=== PATIENT | male | born 1945 ===

== ENCOUNTER 2018-04-09 16:04 | Observation (INO) | payer MEDICARE ==
[2018-04-09 16:05] VITALS: BMI 28.8
[2018-04-09 17:02] LABS: BASO # 0.1 K/uL (0.0-0.2); BASO % 0.4 % (0.0-2.0); EOS # 0.2 K/uL (0.0-0.7); EOS % 1.7 % (0.0-4.0); HEMOGLOBIN 11.6 g/dL (12.0-18.0); LYMPH # 0.9 K/uL (1.0-4.3); LYMPH % 7.4 % (20.0-40.0); MEAN CELL VOLUME 84.2 fL (80.0-94.0); MEAN CORPUSCULAR HEMOGLOBIN 28.9 pg (27.0-31.0); MEAN CORPUSCULAR HGB CONC 34.3 g/dL (33.0-37.0); MEAN PLATELET VOLUME 10.6 fL (7.2-11.7); MONO # 1.3 K/uL (0.0-0.8); NEUT # 9.5 K/uL (1.8-7.0); NEUT % 79.5 % (50.0-75.0); PLATELET COUNT 175 K/uL (130-400); RED CELL DISTRIBUTION WIDTH 14.2 % (11.5-14.5); WHITE BLOOD COUNT 11.9 K/uL (4.8-10.8)
[2018-04-09 17:10] LABS: INR 1.2; PROTHROMBIN TIME 13.4 SECONDS (9.7-12.2)
[2018-04-09 17:15] LABS: ALB/GLOB RATIO 1.2 (1.0-2.1); ALBUMIN 4.3 g/dL (3.5-5.0); ALT/SGPT 23 U/L (21-72); AST/SGOT 31 U/L (17-59); BLOOD UREA NITROGEN 22 mg/dL (9-20); CALCIUM 8.3 mg/dl (8.6-10.4); GFR AFRICAN-AMERICAN 60; GFR NON-AFRICAN AMERICAN 49
[2018-04-09 17:27] LABS: B-TYPE NATRIURETIC PEPTIDE 229 pg/mL (0-900); CK-MB 0.78 ng/mL (0.0-3.38)
[2018-04-09 17:56] LABS: EOSINOPHIL 1 % (0-4); LYMPHOCYTE 5 % (20-40); MONOCYTE 8 % (0-10); NEUTROPHIL 86 % (50-75); PLATELET ESTIMATE NORMAL (NORMAL); TOTAL CELLS COUNTED 100
[2018-04-09 18:01] LABS: SQUAMOUS EPITHIAL < 1 /hpf (0-5); URINE BILIRUBIN NEGATIVE (NEGATIVE); URINE BLOOD NEGATIVE (NEGATIVE); URINE CLARITY Clear (Clear); URINE COLOR Yellow (YELLOW); URINE GLUCOSE (UA) NORMAL (Normal); URINE LEUKOCYTE ESTERASE NEG Leu/uL (Negative); URINE PROTEIN NEGATIVE (NEGATIVE); URINE UROBILINOGEN NORMAL mg/dL (0.2-1.0)
[2018-04-09] MEDS ORDERED: Iodixanol 320 MG/ML 100 ML BOTTLE IV ONE (18:01)
--- NOTE | 2018-04-09 18:02 | RAD ---
PROCEDURE: CHEST RADIOGRAPH, 1 VIEW HISTORY: CP COMPARISON: 09/18/2016 FINDINGS: LUNGS: Clear. PLEURA: No pneumothorax or pleural fluid seen. CARDIOVASCULAR: Normal. OSSEOUS STRUCTURES: No significant abnormalities. VISUALIZED UPPER ABDOMEN: Normal. OTHER FINDINGS: None. IMPRESSION: No active disease.
--- NOTE | 2018-04-09 18:25 | C.PDOC ---
History Of Present Illness 73 year old male, whose PMHx includes Right leg DVT (diagnosed two years ago, compliant with Pradaxa), PE, HTN, and CVA, presents to the ED for evaluation of cough that is productive of white sputum and pleuritic chest pain for several days. Patient also complains of mild shortness of breath. He denies fever, chills, abdominal pain, nausea/vomiting, diarrhea, dysuria, palpitatins. History obtained from patient and his , who is at bedside. PMD Dr. Edgard Baptiste Time Seen by Provider: 04/09/18 16:21 Chief Complaint (Nursing): Chest Pain History Per: Patient, Family () History/Exam Limitations: no limitations Onset/Duration Of Symptoms: Days Current Symptoms Are (Timing): Still Present Severity: Moderate Quality: "Pain" Additional History Per: Patient Past Medical History Reviewed: Historical Data, Nursing Documentation, Vital Signs Vital Signs: Last Vital Signs Temp 99 F 04/09/18 16:10 Pulse 75 04/09/18 16:49 Resp 20 04/09/18 16:10 BP 126/74 04/09/18 16:10 Pulse Ox 96 04/09/18 18:33 - Medical History PMH: CVA, Deep Vein Thrombosis, HTN, Hypercholesterolemia, Pulmonary Embolism Surgical History: No Surg Hx - [facility] ENDOSC POLYPECTOMY OF LG INTEST (12/25/13) PLICATION OF VENA CAVA (03/20/15) Family History: States: No Known Family Hx - Social History Hx Tobacco Use: No Hx Alcohol Use: No Hx Substance Use: No - Immunization History Hx Tetanus Toxoid Vaccination: No Hx Influenza Vaccination: No Hx Pneumococcal Vaccination: Yes Review Of Systems Constitutional: Negative for: Fever, Chills Cardiovascular: Positive for: Chest Pain (pleuritic ). Negative for: Palpitations Respiratory: Positive for: Cough, Shortness of Breath, Sputum (white) Gastrointestinal: Negative for: Nausea, Vomiting, Abdominal Pain Skin: Negative for: Rash Neurological: Negative for: Weakness, Numbness Physical Exam - Physical Exam Appears: Well, Non-toxic, Other (mildly uncomfortable ) Skin: Normal Color, Warm, Dry, No Rash Head: Normacephalic Eye(s): bilateral: Normal Inspection Oral Mucosa: Moist Neck: Supple Chest: Symmetrical, No Deformity, No Tenderness Cardiovascular: Rhythm Regular Respiratory: No Accessory Muscle Use, Rales (mild, at bases ), No Rhonchi, No Wheezing, Other (speaking in full sentences) Gastrointestinal/Abdominal: Normal Exam, Bowel Sounds, Soft, No Tenderness, No Guarding, No Rebound Extremity: Normal ROM, Calf Tenderness (right), Capillary Refill (< 2 seconds ) , Other (2+ pitting edema to bilateral lower extremities, right>left ) Pulses: Left Dorsalis Pedis: Normal, Right Dorsalis Pedis: Normal Neurological/Psych: Oriented x3 ED Course And Treatment - Laboratory Results Result Diagrams: 04/09/18 16:54 04/09/18 16:54 ECG: Interpreted By Me, Viewed By Me ECG Rhythm: Sinus Rhythm ECG Interpretation: Abnormal Interpretation Of ECG: Sinus Rhythm at rate 75bpm with PACs, 1st degree AV block , left axis deviation, no acute ST/T wave changes. Rate From EC O2 Sat by Pulse Oximetry: 96 - Other Rad CXR X-Ray: Viewed By Me, Read By Radiologist Interpretation: Accession No. : [id number]. Patient Name / ID : WILLIS CABRERA / [id number]. Exam Date : 04/09/2018 17:17:38 ( Approved ). Study Comment : Sex / Age : M / [id number]. Creator : Lina Atkins. Dictator : José Miguel Tena MD. Small Machine Bindery Operator : Trouble Dispatcher : José Miguel Tena MD. Approver2 : Report Date : 04/09/2018 17:21:49. My Comment : . PROCEDURE: CHEST RADIOGRAPH, 1 VIEW. HISTORY: CP. COMPARISON: 09/18/2016. FINDINGS: LUNGS: Clear. PLEURA: No pneumothorax or pleural fluid seen. CARDIOVASCULAR : Normal. OSSEOUS STRUCTURES: No significant abnormalities. VISUALIZED UPPER ABDOMEN: Normal. OTHER FINDINGS: None. IMPRESSION: No active disease. Progress Note: Bloodwork, UA, CXR, CT Angio Chest, and EKG ordered and reviewed. Disposition - Disposition Disposition Time: 19:00 Condition: STABLE Forms: [facility] (Turkmen) - Clinical Impression Clinical Impression: Chest pain, Cough, SOB (shortness of breath) - Scribe Statement The provider has reviewed the documentation as recorded by the Scribe (Luz Baptiste) Provider Attestation: All medical record entries made by the Scribe were at my direction and personally dictated by me. I have reviewed the chart and agree that the record accurately reflects my personal performance of the history, physical exam, medical decision making, and the department course for this patient. I have also personally directed, reviewed, and agree with the discharge instructions and disposition. Physician Patient Turnover Patient Signed Over To: Enrike Redd Handoff Comments: pending cta chest, reassessment
--- NOTE | 2018-04-09 18:44 | CT ---
PROCEDURE: CT Chest with contrast (Pulmonary Angiogram) HISTORY: cp, sob, r/o pe COMPARISON: None available. TECHNIQUE: Axial computed tomography images were obtained of the chest in the pulmonary arterial phase of enhancement. Coronal and sagittal reformatted images were created and reviewed. Intravenous contrast dose: Visipaque 320, 100 cc Radiation dose: Total exam DLP = 511.86 mGy-cm. This CT exam was performed using one or more of the following dose reduction techniques: Automated exposure control, adjustment of the mA and/or kV according to patient size, and/or use of iterative reconstruction technique. FINDINGS: PULMONARY ARTERIES: Unremarkable. No pulmonary embolism. AORTA: No acute findings. No thoracic aortic aneurysm. LUNGS: Trace dependent atelectasis seen at the right lower lobe and borderline of left lower lobe near the posterior costophrenic sulcus. Linear atelectasis or fibrosis seen at both bases as well. The central airways are clear. . No nodule, mass or pulmonary consolidation. PLEURAL SPACES: Unremarkable. No effusion or pneuomothorax. HEART: [id number] coronary artery atherosclerosis noted. No cardiomegaly. No significant pericardial effusion. LYMPH NODES: No lymphadenopathy. BONES, CHEST WALL: Unremarkable. No fracture or destructive lesion OTHER FINDINGS: IVC filter again noted at the inferior vena cava in the abdomen. IMPRESSION: Unremarkable CT pulmonary angiogram. No pulmonary embolus. IVC filter in situ in the abdomen.
[2018-04-09] MEDS ORDERED: Albuterol-Ipratrop 3 mg / 0.5 (3 ml) UD INH PRN (22:27)
--- NOTE | 2018-04-09 22:36 | CP.PCM.HP ---
<Nolan Brunner - Last Filed: 04/10/18 04:38> History of Present Illness - History of Present Illness History of Present Illness: This is a 73 yo male with past medical hx of HTN, CVA, DVT, s/p IVC filter, presenting with chief complaint of chest pain and shortness of breath x 2 days. Pt reports the pain started suddenly when he was sitting in his recliner 2 days ago. Describes the pain as "mild", had trouble further characterizing it. It comes and goes. He says when it comes, it will occur for 5 mins at a time. Pain is diffusely located over whole chest, 5/10. It is worse with inspiration and it is reproducible. It does not radiate. Pt also reports cough with nonbloody sputum production for the past 3 months. The chest pain has not happened before. No sick contacts. Last travel was to [place] in Dec 2017. Denies fevers , chills, nausea, vomiting. PMD: Manuel Baptiste- last visit 2 weeks ago Specialists: Dr. Estrella- cardiology PMH: HTN, B/L DVT with IVC filter placement, stroke in November 2014 with some residual deficit on right side PSH: IVC filter, placed by Dr. Clemente, clot removal by Dr. Rodriguez November 2017 Allergies: NKDA FH: DM, emphysema in family Home meds: losartan-HCTZ 12. mg po daily, coreg 10 mg PO daily, lasix 20 mg po BID, asa 81 mg po daily, pradaxa (waiting to confirm dose), symbicort inhaler bid Social hx: Uses cane to walk. Needs with help with ADLs with help of . Retired [employer]. Born in [place]. Denies smoking hx. Denies drinking. Denies drug use. Code status: full code Insurance: [facility] medicare Present on Admission - Present on Admission Any Indicators Present on Admission: Yes History of DVT/PE: Yes History of Uncontrolled Diabetes: No Urinary Catheter: No Decubitus Ulcer Present: No Review of Systems - Constitutional Constitutional: absent: Chills, Fever - EENT Eyes: absent: Blurred Vision, Change in Vision Nose/Mouth/Throat: absent: Neck Pain - Cardiovascular Cardiovascular: Chest Pain, Dyspnea - Respiratory Respiratory: Cough, Dyspnea, Chest Congestion. absent: Hemoptysis - Gastrointestinal Gastrointestinal: absent: Abdominal Pain, Vomiting - Genitourinary Genitourinary: absent: Change in Urinary Stream, Difficulty Urinating - Musculoskeletal Musculoskeletal: Myalgias. absent: Back Pain - Integumentary Integumentary: absent: Bleeding Lesions, Changing Lesions - Neurological Neurological: Focal Weakness, Weakness - Psychiatric Psychiatric: absent: Auditory Hallucinations, Visual Hallucinations - Hematologic/Lymphatic Hematologic: absent: Easy Bleeding, Easy Bruising Past Patient History - Infectious Disease Hx of Infectious Diseases: None - Tetanus Immunizations Tetanus Immunization: Unknown - Past Medical History & Family History Past Medical History?: Yes - Past Social History Smoking Status: Never Smoked Chewing Tobacco Use: No Cigar Use: No Alcohol: None Drugs: Denies Home Situation {Lives}: With Family Domestic Violence: Negative - CARDIAC Hx Hypercholesterolemia: Yes Hx Hypertension: Yes - PULMONARY Hx Pulmonary Embolism: Yes - HEMATOLOGICAL/ONCOLOGICAL Hx Blood Disorders: No - MUSCULOSKELETAL/RHEUMATOLOGICAL Hx Falls: No - GASTROINTESTINAL Hx Gastrointestinal Disorders: Yes Other/Comment: Diverticulosis - PSYCHIATRIC Hx Substance Use: No - SURGICAL HISTORY Hx Surgeries: Yes Other/Comment: Colonscopy (2013) - ANESTHESIA Hx Anesthesia: No Hx Anesthesia Reactions: No Meds Allergies/Adverse Reactions: Allergies Allergy/AdvReac Type Severity Reaction Status Date / Time No Known Allergies Allergy Verified 04/09/18 16:11 Physical Exam - Constitutional Appears: Non-toxic, No Acute Distress - Head Exam Head Exam: ATRAUMATIC, NORMAL INSPECTION, NORMOCEPHALIC - Eye Exam Eye Exam: EOMI - ENT Exam ENT Exam: Mucous Membranes Moist - Neck Exam Neck exam: Positive for: Full Rom, Normal Inspection - Respiratory Exam Respiratory Exam: Rales. absent: Respiratory Distress Additional comments: some minimal rales bases - Cardiovascular Exam Cardiovascular Exam: REGULAR RHYTHM, +S1, +S2 Additional comments: chest pain reproducible to palpation - GI/Abdominal Exam GI & Abdominal Exam: Normal Bowel Sounds, Soft. absent: Tenderness - Extremities Exam Extremities exam: Positive for: pedal edema, pedal pulses present. Negative for : normal inspection Additional comments: right medial leg tender to palpation - Neurological Exam Neurological exam: Alert, CN II-XII Intact, Oriented x3 - Psychiatric Exam Psychiatric exam: Normal Affect, Normal Mood - Skin Skin Exam: Dry, Intact, Normal Color, Warm Results - Vital Signs Recent Vital Signs: Last Vital Signs Temp 98.1 F 04/09/18 22:11 Pulse 82 04/09/18 22:11 Resp 20 04/09/18 22:11 BP 135/77 04/09/18 22:11 Pulse Ox 95 04/09/18 22:11 - Labs Result Diagrams: 04/09/18 16:54 04/09/18 16:54 Labs: Laboratory Results - last 24 hr 04/09/18 04/09/18 04/09/18 16:54 16:54 16:54 WBC 11.9 H D RBC 4.00 L Hgb 11.6 L Hct 33.7 L MCV 84.2 MCH 28.9 MCHC 34.3 RDW 14.2 Plt Count 175 MPV 10.6 Neut % (Auto) 79.5 H Lymph % (Auto) 7.4 L [place] % (Auto) 11.0 H Eos % (Auto) 1.7 Baso % (Auto) 0.4 Neut # (Auto) 9.5 H Lymph # (Auto) 0.9 L [place] # (Auto) 1.3 H Eos # (Auto) 0.2 Baso # (Auto) 0.1 Neutrophils % (Manual) 86 H Lymphocytes % (Manual) 5 L Monocytes % (Manual) 8 Eosinophils % (Manual) 1 Platelet Estimate Normal RBC Morphology Normal PT 13.4 H INR 1.2 APTT 43 H Sodium 139 Potassium 4.2 Chloride 102 Carbon Dioxide 28 Anion Gap 14 BUN 22 H Creatinine 1.4 Est GFR ( Amer) 60 Est GFR (Non-Af Amer) 49 Random Glucose 89 Calcium 8.3 L Total Bilirubin 0.7 AST 31 ALT 23 Alkaline Phosphatase 59 Total Creatine Kinase 66 CK-MB (Mass) 0.78 Troponin I < 0.0120 NT-Pro-B Natriuret Pep 229 Total Protein 8.1 Albumin 4.3 Globulin 3.8 Albumin/Globulin Ratio 1.2 Urine Color Urine Clarity Urine pH Ur Specific [place] Urine Protein Urine Glucose (UA) Urine Ketones Urine Blood Urine Nitrate Urine Bilirubin Urine Urobilinogen Ur Leukocyte Esterase Urine WBC (Auto) Urine RBC (Auto) Ur Squamous Epith Cells 04/09/18 17:56 WBC RBC Hgb Hct MCV MCH MCHC RDW Plt Count MPV Neut % (Auto) Lymph % (Auto) [place] % (Auto) Eos % (Auto) Baso % (Auto) Neut # (Auto) Lymph # (Auto) [place] # (Auto) Eos # (Auto) Baso # (Auto) Neutrophils % (Manual) Lymphocytes % (Manual) Monocytes % (Manual) Eosinophils % (Manual) Platelet Estimate RBC Morphology PT INR APTT Sodium Potassium Chloride Carbon Dioxide Anion Gap BUN Creatinine Est GFR ( Amer) Est GFR (Non-Af Amer) Random Glucose Calcium Total Bilirubin AST ALT Alkaline Phosphatase Total Creatine Kinase CK-MB (Mass) Troponin I NT-Pro-B Natriuret Pep Total Protein Albumin Globulin Albumin/Globulin Ratio Urine Color Yellow Urine Clarity Clear Urine pH 5.0 Ur Specific [place] 1.013 Urine Protein Negative Urine Glucose (UA) Normal Urine Ketones Negative Urine Blood Negative Urine Nitrate Negative Urine Bilirubin Negative Urine Urobilinogen Normal Ur Leukocyte Esterase Neg Urine WBC (Auto) < 1 Urine RBC (Auto) < 1 Ur Squamous Epith Cells < 1 Assessment & Plan - Assessment and Plan (Free Text) Assessment: This is a 73 yo male with past medica hx of HTN, DVT s/p IVC filter, CVA, reporting chief complaint of chest pain and shortness of breath 1. Chest pain -serial troponins -1st two sets of troponins negative -serial EKGs -initial ekg shows sinus rhythm with PACs, 1st degree AV block -HGB a1C -lipid panel -TSH and free t4 -BNP within normal limits -start asa 81 mg po daily -start crestor 10 mg po hs -urine drug screen -heart healthy diet -restart pradaxa 75 mg po bid -cardiology consult. Dr. Lentz. recs appreciated. -tylenol 650 mg po q 6 hrs prn pain -Oxygen by nasal cannula as needed -duonebs RQ6 prn -echo pending, no previous echo on file. -JUDITH risk score of at least 4 -chest CT angio showed no evidence of pulmonary embolism, but does not mild to moderate coronary atherosclerosis -continue coreg 6.25 mg po bid. 2. Coronary artery disease -noted on chest ct -continue asa 81 mg po daily -continue crestor 10 mg po hs 2. Leukocytosis -blood cultures x 2 -urine cultures x 2 -sputum cultures x 2 -procalcitonin -lactic acid 3. Pain right leg -will order venous dopplers lower extremities bilaterally 4. Anemia -normocytic -will check stool for occult blood -iron studies -LDH, haptoglobin -retic count 4. hx of DVT -restart pradaxa 75 mg po bid 5. hx of CVA -will order PT/OT -asa 81 mg PO daily 6. elevated PT and PTT -likely due to use of pradaxa -continue to monitor 6. GI/DVT ppx -protonix 40 mg iv daily -pradaxa 75 mg po bid Heart healthy diet Code status: full code discussed with Dr. Hopkins <Braden Hopkins - Last Filed: 04/10/18 19:09> Results - Vital Signs Recent Vital Signs: Last Vital Signs Temp 97.9 F 04/10/18 15:00 Pulse 71 04/10/18 15:00 Resp 20 04/10/18 15:00 BP 123/78 04/10/18 15:00 Pulse Ox 94 L 04/10/18 15:00 - Labs Result Diagrams: 04/10/18 06:21 04/10/18 06:21 Labs: Laboratory Results - last 24 hr 04/09/18 04/10/18 04/10/18 22:55 01:40 03:49 WBC RBC Hgb Hct MCV MCH MCHC RDW Plt Count MPV Neut % (Auto) Lymph % (Auto) [place] % (Auto) Eos % (Auto) Baso % (Auto) Neut # (Auto) Lymph # (Auto) [place] # (Auto) Eos # (Auto) Baso # (Auto) Neutrophils % (Manual) Lymphocytes % (Manual) Monocytes % (Manual) Eosinophils % (Manual) Platelet Estimate RBC Morphology Retic Count Haptoglobin Sodium Potassium Chloride Carbon Dioxide Anion Gap BUN Creatinine Est GFR ( Amer) Est GFR (Non-Af Amer) Random Glucose Hemoglobin A1c Lactic Acid Calcium Iron TIBC % Saturation Ferritin 52.1 Total Bilirubin AST ALT Alkaline Phosphatase Lactate Dehydrogenase 425 Total Creatine Kinase 71 CK-MB (Mass) 0.54 Troponin I < 0.0120 NT-Pro-B Natriuret Pep 225 Total Protein Albumin Globulin Albumin/Globulin Ratio Triglycerides 61 D Cholesterol 166 LDL Cholesterol Direct 100 HDL Cholesterol 35 Procalcitonin Free T4 TSH 3rd Generation 1.83 Urine Opiates Screen Negative Urine Methadone Screen Negative Ur Barbiturates Screen Negative Ur Phencyclidine Scrn Negative Ur Amphetamines Screen Negative U Benzodiazepines Scrn Negative U Oth Cocaine Metabols Negative U Cannabinoids Screen Negative 04/10/18 04/10/18 04/10/18 06:21 06:21 06:21 WBC 9.8 RBC 3.80 L Hgb 11.0 L Hct 31.8 L MCV 83.6 MCH 29.1 MCHC 34.7 RDW 14.7 H Plt Count 164 MPV 10.7 Neut % (Auto) 75.9 H Lymph % (Auto) 9.5 L [place] % (Auto) 12.2 H Eos % (Auto) 2.0 Baso % (Auto) 0.4 Neut # (Auto) 7.4 H Lymph # (Auto) 0.9 L [place] # (Auto) 1.2 H Eos # (Auto) 0.2 Baso # (Auto) 0.0 Neutrophils % (Manual) 78 H Lymphocytes % (Manual) 7 L Monocytes % (Manual) 11 H Eosinophils % (Manual) 4 Platelet Estimate Normal RBC Morphology Normal Retic Count 1.0 Haptoglobin Sodium 139 Potassium 3.5 L Chloride 101 Carbon Dioxide 27 Anion Gap 15 BUN 20 Creatinine 1.3 Est GFR ( Amer) > 60 Est GFR (Non-Af Amer) 54 Random Glucose 103 Hemoglobin A1c Lactic Acid Calcium 8.1 L Iron TIBC % Saturation Ferritin Total Bilirubin 0.7 AST 24 ALT 18 L D Alkaline Phosphatase 61 Lactate Dehydrogenase Total Creatine Kinase CK-MB (Mass) Troponin I NT-Pro-B Natriuret Pep Total Protein 7.5 Albumin 3.9 Globulin 3.6 Albumin/Globulin Ratio 1.1 Triglycerides Cholesterol LDL Cholesterol Direct HDL Cholesterol Procalcitonin Free T4 TSH 3rd Generation Urine Opiates Screen Urine Methadone Screen Ur Barbiturates Screen Ur Phencyclidine Scrn Ur Amphetamines Screen U Benzodiazepines Scrn U Oth Cocaine Metabols U Cannabinoids Screen 04/10/18 04/10/18 04/10/18 06:21 06:21 06:21 WBC RBC Hgb Hct MCV MCH MCHC RDW Plt Count MPV Neut % (Auto) Lymph % (Auto) [place] % (Auto) Eos % (Auto) Baso % (Auto) Neut # (Auto) Lymph # (Auto) [place] # (Auto) Eos # (Auto) Baso # (Auto) Neutrophils % (Manual) Lymphocytes % (Manual) Monocytes % (Manual) Eosinophils % (Manual) Platelet Estimate RBC Morphology Retic Count Haptoglobin 271.3 H Sodium Potassium Chloride Carbon Dioxide Anion Gap BUN Creatinine Est GFR ( Amer) Est GFR (Non-Af Amer) Random Glucose Hemoglobin A1c Lactic Acid Calcium Iron 22 L TIBC 312 % Saturation 7 L Ferritin Total Bilirubin AST ALT Alkaline Phosphatase Lactate Dehydrogenase Total Creatine Kinase CK-MB (Mass) Troponin I NT-Pro-B Natriuret Pep Total Protein Albumin Globulin Albumin/Globulin Ratio Triglycerides Cholesterol LDL Cholesterol Direct HDL Cholesterol Procalcitonin 0.07 L Free T4 1.55 TSH 3rd Generation Urine Opiates Screen Urine Methadone Screen Ur Barbiturates Screen Ur Phencyclidine Scrn Ur Amphetamines Screen U Benzodiazepines Scrn U Oth Cocaine Metabols U Cannabinoids Screen 04/10/18 04/10/18 04/10/18 06:21 06:21 06:21 WBC RBC Hgb Hct MCV MCH MCHC RDW Plt Count MPV Neut % (Auto) Lymph % (Auto) [place] % (Auto) Eos % (Auto) Baso % (Auto) Neut # (Auto) Lymph # (Auto) [place] # (Auto) Eos # (Auto) Baso # (Auto) Neutrophils % (Manual) Lymphocytes % (Manual) Monocytes % (Manual) Eosinophils % (Manual) Platelet Estimate RBC Morphology Retic Count Haptoglobin Sodium Potassium Chloride Carbon Dioxide Anion Gap BUN Creatinine Est GFR ( Amer) Est GFR (Non-Af Amer) Random Glucose Hemoglobin A1c 6.0 Lactic Acid 0.7 Calcium Iron TIBC % Saturation Ferritin Total Bilirubin AST ALT Alkaline Phosphatase Lactate Dehydrogenase Total Creatine Kinase 56 CK-MB (Mass) 0.56 Troponin I < 0.0120 NT-Pro-B Natriuret Pep Total Protein Albumin Globulin Albumin/Globulin Ratio Triglycerides Cholesterol LDL Cholesterol Direct HDL Cholesterol Procalcitonin Free T4 TSH 3rd Generation Urine Opiates Screen Urine Methadone Screen Ur Barbiturates Screen Ur Phencyclidine Scrn Ur Amphetamines Screen U Benzodiazepines Scrn U Oth Cocaine Metabols U Cannabinoids Screen Assessment & Plan - Date & Time Date: 04/10/18 (I have seen and examined the patient. I agree with the findings and plan of care as documented by Dr. Brunner. Patient with chest pain. History of PE/DVT with IVC filter. Continue Pradaxa. CT angio negative for PE. Check lower extremity doppler. ROMIx3 with EKG. Aspirin and Statin. Monitor for acute changes.) Time: 19:08 Attending/Attestation - Attestation I have personally seen and examined this patient.: Yes I have fully participated in the care of the patient.: Yes I have reviewed all pertinent clinical information: Yes
[2018-04-09 23:21] LABS: CK-MB 0.54 ng/mL (0.0-3.38)
[2018-04-10 02:33] LABS: FERRITIN 52.1 ng/mL
[2018-04-10 04:12] LABS: BARBITURATES, UR NEGATIVE (NEGATIVE); BENZODIAZEPINES, UR NEGATIVE (NEGATIVE); OPIATES, UR NEGATIVE (NEGATIVE); PHENCYCLIDINE, UR NEGATIVE (NEGATIVE)
[2018-04-10 06:29] LABS: BASO % 0.4 % (0.0-2.0); EOS # 0.2 K/uL (0.0-0.7); LYMPH # 0.9 K/uL (1.0-4.3); LYMPH % 9.5 % (20.0-40.0); MEAN CELL VOLUME 83.6 fL (80.0-94.0); MEAN CORPUSCULAR HEMOGLOBIN 29.1 pg (27.0-31.0); MEAN CORPUSCULAR HGB CONC 34.7 g/dL (33.0-37.0); MEAN PLATELET VOLUME 10.7 fL (7.2-11.7); MONO # 1.2 K/uL (0.0-0.8); MONO % 12.2 % (0.0-10.0); NEUT # 7.4 K/uL (1.8-7.0); NEUT % 75.9 % (50.0-75.0); PLATELET COUNT 164 K/uL (130-400); RED CELL DISTRIBUTION WIDTH 14.7 % (11.5-14.5); WHITE BLOOD COUNT 9.8 K/uL (4.8-10.8)
[2018-04-10 07:36] LABS: ALB/GLOB RATIO 1.1 (1.0-2.1); ALBUMIN 3.9 g/dL (3.5-5.0); ALT/SGPT 18 U/L (21-72); AST/SGOT 24 U/L (17-59); BLOOD UREA NITROGEN 20 mg/dL (9-20); CALCIUM 8.1 mg/dl (8.6-10.4); GFR AFRICAN-AMERICAN > 60; GFR NON-AFRICAN AMERICAN 54
[2018-04-10 07:40] LABS: CK-MB 0.56 ng/mL (0.0-3.38)
[2018-04-10 07:54] LABS: IRON 22 ug/dL (49-181)
[2018-04-10 08:05] LABS: % IRON SATURATION 7 (20-55); FREE T4 1.55 ng/dL (0.78-2.19); TOTAL IRON BINDING CAPACITY 312 ug/dL (250-450)
[2018-04-10 08:27] VITALS: RESP 20
[2018-04-10 09:45] LABS: EOSINOPHIL 4 % (0-4); LYMPHOCYTE 7 % (20-40); MONOCYTE 11 % (0-10); NEUTROPHIL 78 % (50-75); PLATELET ESTIMATE NORMAL (NORMAL); TOTAL CELLS COUNTED 100
[2018-04-10] MEDS ORDERED: Potassium Chloride 20 mEq ER Tab PO ONE (10:00)
--- NOTE | 2018-04-10 11:26 | CP.PCM.PN ---
<Oxana Stevens - Last Filed: 04/10/18 14:22> Subjective - Date & Time of Evaluation Date of Evaluation: 04/10/18 Time of Evaluation: 09:00 - Subjective Subjective: Medicine Note for Hospitalist Service- Dr. Feldman Patient was seen and examined at bedside. Patient reports a nonproductive cough that causes chest pain. Admits to right lower extremity pain. He has not had a bowel movement in 3 days, admits to passing flatus. Denied fever, chills, headaches, shortness of breath, n/v/d, or urinary symptoms. Objective - Vital Signs/Intake and Output Vital Signs (last 24 hours): Temp Pulse Resp BP Pulse Ox 97.8 F 87 20 134/81 94 L 04/10/18 08:26 04/10/18 09:13 04/10/18 08:26 04/10/18 09:13 04/10/18 08:26 Intake and Output: 04/10/18 04/10/18 06:59 18:59 Output Total 550 Balance -550 - Medications Medications: Current Medications Acetaminophen (Tylenol 325mg Tab) 650 mg PO Q6 PRN PRN Reason: Pain, moderate (4-7) Albuterol/Ipratropium (Duoneb 3 Mg/0.5 Mg (3 Ml) Ud) 3 ml INH RQ6 PRN PRN Reason: Shortness of Breath Aspirin (Aspirin Chewable) 81 mg PO DAILY [facility] Last Admin: 04/10/18 09:12 Dose: 81 mg Carvedilol (Coreg) 6.25 mg PO BID [facility] Last Admin: 04/10/18 09:12 Dose: 6.25 mg Dabigatran (Pradaxa) 75 mg PO BID [facility] Last Admin: 04/10/18 09:12 Dose: 75 mg Hydrochlorothiazide (Microzide) 12.5 mg PO DAILY [facility] Last Admin: 04/10/18 09:12 Dose: 12.5 mg Losartan Potassium (Cozaar) 50 mg PO DAILY [facility] Last Admin: 04/10/18 09:12 Dose: 50 mg Pantoprazole Sodium (Protonix Inj) 40 mg IVP DAILY [facility] Last Admin: 04/10/18 09:11 Dose: 40 mg Rosuvastatin Calcium (Crestor) 10 mg PO HS [facility] - Labs Labs: 04/10/18 06:21 04/10/18 06:21 PT 13.4 SECONDS (9.7-12.2) H 04/09/18 16:54 INR 1.2 04/09/18 16:54 APTT 43 SECONDS (21-34) H 04/09/18 16:54 - Additional Findings Additional findings: - Constitutional Appears: Non-toxic, No Acute Distress - Head Exam Head Exam: ATRAUMATIC, NORMAL INSPECTION, NORMOCEPHALIC - Eye Exam Eye Exam: EOMI - ENT Exam ENT Exam: Mucous Membranes Moist - Neck Exam Neck exam: Positive for: Full Rom, Normal Inspection - Respiratory Exam Respiratory Exam: CTA bilaterally absent: Respiratory Distress, rales, rhonchi Additional comments: - Cardiovascular Exam Cardiovascular Exam: REGULAR RHYTHM, +S1, +S2 Additional comments: chest pain reproducible to palpation - GI/Abdominal Exam GI & Abdominal Exam: Normal Bowel Sounds, Firm, Distended absent: Tenderness - Extremities Exam Extremities exam: Positive for: pedal edema, pedal pulses present. Negative for : normal inspection Additional comments: right medial leg tender to palpation, right leg swollen, some chronic venous stasis noted bilaterally R>L - Neurological Exam Neurological exam: Alert, CN II-XII Intact, Oriented x3 - Psychiatric Exam Psychiatric exam: Normal Affect, Normal Mood - Skin Skin Exam: Dry, Intact, Normal Color, Warm Assessment and Plan - Assessment and Plan (Free Text) Assessment: This is a 73 year old male with PMHx of CVA with right sided residual weakness (ambulates with quad cane; 2014), CAD with 1 stent on Pradaxa (2015), HTN, HLD, and history of right LE DVT s/p IVC filter (2014) who presented to the ED with nonproductive cough, chest pain, and right LE pain. Patient was admitted for Chest pain R/O ACS. Pneumonia, GA, PE, CHF were ruled out. Venous dopplers of LE showed bilateral superficial thrombophlebitis and a chronic right LE DVT. Constipation x 3 days with passing flatus - SBO ruled out via abdominal xray. Pending ECHO. Plan: Chest Pain R/O ACS Hx CAD with 1 stent on Pradaxa (2015) Chest pain likely 2/2 Bronchitis - Cardiology consulted - Dr. Pink - help appreciated - BARBER x 3 negative, EKG x3 - 1st degree AV block - HGBA1C: 6.0; TSH, Free T4 WNL, BNP - WNL - Pneumonia, GA, PE, CHF were ruled out - Pending ECHO Imaging: - CXR: NAD, no effusions, consolidations noted - CTA: showed no evidence of pulmonary embolism, but does not mild to moderate coronary atherosclerosis, no effusions, or consolidations or ground glass appearance that was noted on previous CT chest 2015 Bronchitis - CXR: NAD, no effusions, consolidations noted - Procal - low - F/U blood, sputum cultures Management: - Duonebs Q6H ADELFO - Promethazine 6.25mg Q6H - Solumedrol 40mg IVP one dose, prednisone 20mg PO tomorrow x 1 dose Hx right LE DVT s/p IVC filter (2014) - Venous dopplers - bilateral superficial thrombophlebitis and a chronic right LE DVT - Patient is on ASA, Pradaxa - will continue Constipation - Abdominal Xray - no evidence of SBO - Will give lactulose, colace Hx HTN - Resumed home medications: Coreg 6.25 BID, HCTZ 12.5mg/Cozaar 50mg Hx HLD - Lipid panel WNL - Started Crestor 10mg PO QHS Iron Deficiency Anemia - Confirmed on labs - IV Ferrlecit - Will DC with PO iron, colace, and encourage CVA with right sided residual weakness (ambulates with quad cane; 2014) - PT eval Disposition: Pending ECHO. Anticipate discharge 04/11/[address] Feldman, Oxana Stevens DO, PGY-1 <Zoey Feldman V - Last Filed: 04/11/18 10:17> Objective - Vital Signs/Intake and Output Vital Signs (last 24 hours): Temp Pulse Resp BP Pulse Ox 97.9 F 71 20 123/78 94 L 04/10/18 15:00 04/10/18 15:00 04/10/18 15:00 04/10/18 15:00 04/10/18 15:00 Intake and Output: 04/10/18 04/10/18 06:59 18:59 Output Total 550 Balance -550 - Medications Medications: Current Medications Acetaminophen (Tylenol 325mg Tab) 650 mg PO Q6 PRN PRN Reason: Pain, moderate (4-7) Albuterol/Ipratropium (Duoneb 3 Mg/0.5 Mg (3 Ml) Ud) 3 ml INH RQ6 [facility] Aspirin (Aspirin Chewable) 81 mg PO DAILY [facility] Last Admin: 04/10/18 09:12 Dose: 81 mg Carvedilol (Coreg) 6.25 mg PO BID [facility] Last Admin: 04/10/18 17:54 Dose: 6.25 mg Dabigatran (Pradaxa) 75 mg PO BID [facility] Last Admin: 04/10/18 17:54 Dose: 75 mg Docusate Sodium (Colace) 100 mg PO BID [facility] Last Admin: 04/10/18 17:54 Dose: 100 mg Ferric Sodium Gluconate Complex (Ferrlecit) 125 mg IVPB DAILY [facility] Stop: 04/19/18 10:01 Hydrochlorothiazide (Microzide) 12.5 mg PO DAILY [facility] Last Admin: 04/10/18 09:12 Dose: 12.5 mg Losartan Potassium (Cozaar) 50 mg PO DAILY [facility] Last Admin: 04/10/18 09:12 Dose: 50 mg Pantoprazole Sodium (Protonix Inj) 40 mg IVP DAILY [facility] Last Admin: 04/10/18 09:11 Dose: 40 mg Prednisone (Prednisone Tab) 20 mg PO DAILY [facility] Stop: 04/12/18 10:01 Promethazine HCl (Phenergan Syrup) 6.25 mg PO Q6H PRN PRN Reason: Cough Last Admin: 04/10/18 14:53 Dose: 6.25 mg Rosuvastatin Calcium (Crestor) 10 mg PO HS [facility] - Labs Labs: 04/10/18 06:21 04/10/18 06:21 PT 13.4 SECONDS (9.7-12.2) H 04/09/18 16:54 INR 1.2 04/09/18 16:54 APTT 43 SECONDS (21-34) H 04/09/18 16:54 Attending/Attestation - Attestation I have personally seen and examined this patient.: Yes I have fully participated in the care of the patient.: Yes I have reviewed all pertinent clinical information, including history, physical exam and plan: Yes
--- NOTE | 2018-04-10 13:29 | RAD ---
HISTORY: rule out SBO COMPARISON: No prior. FINDINGS: BOWEL: Moderately prominent retained fecal material seen in the large bowel with exception of the proximal transverse colon and distal sigmoid. There is a nonobstructive bowel gas pattern identified. Gas seen in the gastric viscus. Inferior vena cava filter is identified placed in the right parasagittal mid abdomen. Presumed vascular calcifications in the inferior pelvis soft tissues. BONES: Multilevel degenerative lumbar spondylosis. OTHER FINDINGS: None. IMPRESSION: Nonobstructive bowel gas pattern. Moderately prominent retained fecal material noted in various large-bowel segments.
--- NOTE | 2018-04-10 13:30 | VASCLAB ---
PROCEDURE: Lower Extremity Venous Duplex Exam. HISTORY: Pain PRIORS: Lower extremity ultrasound dated 02/03/2016. TECHNIQUE: Bilateral common femoral, femoral, popliteal and posterior tibial, peroneal and great saphenous veins were evaluated. Flow was assessed with color Doppler, compressibility, assessment of phasic flow and augmentation response. Report prepared by LUPILLO Schuler FINDINGS: RIGHT: 1. Common Femoral Vein: 1.1. Compressibility - Fully compressible: Thrombus - None : Flow - Phasic: Augmentation -Normal: Reflux - None. 2. Femoral Vein: (Incompressible at mid and distal thigh.) 2.1. Compressibility - Partial: Thrombus - Chronic : Flow - Reduced : Augmentation -Normal: Reflux - None. 3. Popliteal Vein: 3.1. Compressibility - Partial: Thrombus - Chronic : Flow - Reduced : Augmentation -Normal: Reflux - None. 4. Posterior Tibial Vein: 4.1. Compressibility - Fully compressible: Thrombus - None: Flow - Phasic: Augmentation -Normal: Reflux - None. 5. Peroneal Vein: (Distal view only due to swelling) 5.1. Compressibility - Fully compressible: Thrombus - None: Flow - Phasic: Augmentation -Normal: Reflux - None. 6. Great Saphenous Vein: (Incompressible at knee and thigh levels.) 6.1. Compressibility - Incompressible: Thrombus - Chronic: Flow - Absent : Augmentation - Normal: Reflux - None. LEFT: 1. Common Femoral Vein: 1.1. Compressibility - Fully compressible: Thrombus - None: Flow - Phasic: Augmentation -Normal: Reflux - None. 2. Femoral Vein: 2.1. Compressibility - Fully compressible: Thrombus - None: Flow - Phasic: Augmentation -Normal: Reflux - None. 3. Popliteal Vein: 3.1. Compressibility - Fully compressible: Thrombus - None : Flow - Phasic: Augmentation -Normal: Reflux - None. 4. Posterior Tibial Vein: 4.1. Compressibility - Fully compressible: Thrombus - None: Flow - Phasic: Augmentation -Normal: Reflux - None. 5. Peroneal Vein: 5.1. Compressibility - Fully compressible: Thrombus - None: Flow - Phasic: Augmentation -Normal: Reflux - None. 6. Great Saphenous Vein: (Incompressible at thigh level.) 6.1. Compressibility - Incompressible: Thrombus - Chronic: Flow - Absent : Augmentation - Normal: Reflux - None. OTHER FINDINGS: IMPRESSION: Right: 1. Partial chronic deep vein thrombosis of the right femoral and popliteal veins, with mild reduction of the venous return. 2. Superficial phlebitis of the right great saphenous vein. Left: 1. No evidence of deep vein thrombosis of the left lower extremity. 2. Superficial phlebitis of the left great saphenous vein. Findings were conveyed to Jessa Sadler at 10:43 a.m.
--- NOTE | 2018-04-10 14:03 | CARD ---
APPROVED REPORT EKG Measurement Heart [id number] <Conclusion> Sinus rhythm with 1st degree AV block with premature atrial complexes Low voltage QRS Borderline ECG
[2018-04-10] MEDS ORDERED: Promethazine 6.25 MG/5 ML CUP PO PRN (14:33)
[2018-04-10] MEDS ORDERED: MethylPREDNISolone 40 mg Vial IVP STA (15:35)
[2018-04-10] MEDS ORDERED: Ferric Sodium Gluconat Complex 62.5 mg/5 ml Vial IVPB ONE (16:00)
--- NOTE | 2018-04-10 18:07 | CP.PCM.CON ---
History of Present Illness - History of Present Illness History of Present Illness: The pt is a 73 year old man with a h/o DVT, chronic thrombosis of the left leg. He underwent an endovascular procedure with Dr Portillo Nov 2017. Pt has paroxysmal afib as well. Pt had coronary angioplasty of the om1 branch of the LCX in 2016, no stent, just balloon. Pt has a cough, and has chest pain only when he coughs. But the reason he came to the hospital was a painful swollen left leg. the pt has an IVC filter. Pt had a stroke a few years back. Review of Systems - Review of Systems All systems: reviewed and no additional remarkable complaints except ( ABOVE.) Past Patient History - Infectious Disease Hx of Infectious Diseases: None - Tetanus Immunizations Tetanus Immunization: Unknown - Past Medical History & Family History Past Medical History?: Yes - Past Social History Smoking Status: Never Smoked Chewing Tobacco Use: No Cigar Use: No Alcohol: None Drugs: Denies Home Situation {Lives}: With Family Domestic Violence: Negative - CARDIAC Hx Hypercholesterolemia: Yes Hx Hypertension: Yes - PULMONARY Hx Pulmonary Embolism: Yes - HEMATOLOGICAL/ONCOLOGICAL Hx Blood Disorders: No - MUSCULOSKELETAL/RHEUMATOLOGICAL Hx Falls: No - GASTROINTESTINAL Hx Gastrointestinal Disorders: Yes Other/Comment: Diverticulosis - PSYCHIATRIC Hx Substance Use: No - SURGICAL HISTORY Hx Surgeries: Yes Other/Comment: Colonscopy (2013) - ANESTHESIA Hx Anesthesia: No Hx Anesthesia Reactions: No Meds Allergies/Adverse Reactions: Allergies Allergy/AdvReac Type Severity Reaction Status Date / Time No Known Allergies Allergy Verified 04/09/18 16:11 - Medications Medications: Current Medications Acetaminophen (Tylenol 325mg Tab) 650 mg PO Q6 PRN PRN Reason: Pain, moderate (4-7) Albuterol/Ipratropium (Duoneb 3 Mg/0.5 Mg (3 Ml) Ud) 3 ml INH RQ6 [facility] Aspirin (Aspirin Chewable) 81 mg PO DAILY [facility] Last Admin: 04/10/18 09:12 Dose: 81 mg Carvedilol (Coreg) 6.25 mg PO BID [facility] Last Admin: 04/10/18 17:54 Dose: 6.25 mg Dabigatran (Pradaxa) 75 mg PO BID [facility] Last Admin: 04/10/18 17:54 Dose: 75 mg Docusate Sodium (Colace) 100 mg PO BID [facility] Last Admin: 04/10/18 17:54 Dose: 100 mg Ferric Sodium Gluconate Complex (Ferrlecit) 125 mg IVPB DAILY [facility] Stop: 04/19/18 10:01 Hydrochlorothiazide (Microzide) 12.5 mg PO DAILY [facility] Last Admin: 04/10/18 09:12 Dose: 12.5 mg Losartan Potassium (Cozaar) 50 mg PO DAILY [facility] Last Admin: 04/10/18 09:12 Dose: 50 mg Pantoprazole Sodium (Protonix Inj) 40 mg IVP DAILY [facility] Last Admin: 04/10/18 09:11 Dose: 40 mg Prednisone (Prednisone Tab) 20 mg PO DAILY [facility] Stop: 04/12/18 10:01 Promethazine HCl (Phenergan Syrup) 6.25 mg PO Q6H PRN PRN Reason: Cough Last Admin: 04/10/18 14:53 Dose: 6.25 mg Rosuvastatin Calcium (Crestor) 10 mg PO [facility] Physical Exam - Constitutional Appears: Older Than Stated Age, Chronically Ill - Head Exam Head Exam: ATRAUMATIC - Eye Exam Eye Exam: EOMI - ENT Exam ENT Exam: Mucous Membranes Dry - Respiratory Exam Respiratory Exam: Clear to Auscultation Bilateral - Cardiovascular Exam Cardiovascular Exam: REGULAR RHYTHM - Extremities Exam Extremities exam: Positive for: full ROM (lEFT LEGE IS TENDER IN THE CALF), pedal edema (Left leg is tender in the calf, swollen, but warm. ) Results - Vital Signs Recent Vital Signs: Last Vital Signs Temp 97.9 F 04/10/18 15:00 Pulse 71 04/10/18 15:00 Resp 20 04/10/18 15:00 BP 123/78 04/10/18 15:00 Pulse Ox 94 L 04/10/18 15:00 - Labs Result Diagrams: 04/10/18 06:21 04/10/18 06:21 Labs: Laboratory Results - last 24 hr 04/09/18 04/09/18 04/10/18 17:56 22:55 01:40 WBC RBC Hgb Hct MCV MCH MCHC RDW Plt Count MPV Neut % (Auto) Lymph % (Auto) Cowley % (Auto) Eos % (Auto) Baso % (Auto) Neut # (Auto) Lymph # (Auto) Cowley # (Auto) Eos # (Auto) Baso # (Auto) Neutrophils % (Manual) Lymphocytes % (Manual) Monocytes % (Manual) Eosinophils % (Manual) Platelet Estimate RBC Morphology Retic Count Haptoglobin Sodium Potassium Chloride Carbon Dioxide Anion Gap BUN Creatinine Est GFR ( Amer) Est GFR (Non-Af Amer) Random Glucose Hemoglobin A1c Lactic Acid Calcium Iron TIBC % Saturation Ferritin 52.1 Total Bilirubin AST ALT Alkaline Phosphatase Lactate Dehydrogenase 425 Total Creatine Kinase 71 CK-MB (Mass) 0.54 Troponin I < 0.0120 NT-Pro-B Natriuret Pep 225 Total Protein Albumin Globulin Albumin/Globulin Ratio Triglycerides 61 D Cholesterol 166 LDL Cholesterol Direct 100 HDL Cholesterol 35 Procalcitonin Free T4 TSH 3rd Generation 1.83 Urine Color Yellow Urine Clarity Clear Urine pH 5.0 Ur Specific [place] 1.013 Urine Protein Negative Urine Glucose (UA) Normal Urine Ketones Negative Urine Blood Negative Urine Nitrate Negative Urine Bilirubin Negative Urine Urobilinogen Normal Ur Leukocyte Esterase Neg Urine WBC (Auto) < 1 Urine RBC (Auto) < 1 Ur Squamous Epith Cells < 1 Urine Opiates Screen Urine Methadone Screen Ur Barbiturates Screen Ur Phencyclidine Scrn Ur Amphetamines Screen U Benzodiazepines Scrn U Oth Cocaine Metabols U Cannabinoids Screen 04/10/18 04/10/18 04/10/18 03:49 06:21 06:21 WBC 9.8 RBC 3.80 L Hgb 11.0 L Hct 31.8 L MCV 83.6 MCH 29.1 MCHC 34.7 RDW 14.7 H Plt Count 164 MPV 10.7 Neut % (Auto) 75.9 H Lymph % (Auto) 9.5 L Cowley % (Auto) 12.2 H Eos % (Auto) 2.0 Baso % (Auto) 0.4 Neut # (Auto) 7.4 H Lymph # (Auto) 0.9 L Cowley # (Auto) 1.2 H Eos # (Auto) 0.2 Baso # (Auto) 0.0 Neutrophils % (Manual) 78 H Lymphocytes % (Manual) 7 L Monocytes % (Manual) 11 H Eosinophils % (Manual) 4 Platelet Estimate Normal RBC Morphology Normal Retic Count Haptoglobin Sodium 139 Potassium 3.5 L Chloride 101 Carbon Dioxide 27 Anion Gap 15 BUN 20 Creatinine 1.3 Est GFR ( Amer) > 60 Est GFR (Non-Af Amer) 54 Random Glucose 103 Hemoglobin A1c Lactic Acid Calcium 8.1 L Iron TIBC % Saturation Ferritin Total Bilirubin 0.7 AST 24 ALT 18 L D Alkaline Phosphatase 61 Lactate Dehydrogenase Total Creatine Kinase CK-MB (Mass) Troponin I NT-Pro-B Natriuret Pep Total Protein 7.5 Albumin 3.9 Globulin 3.6 Albumin/Globulin Ratio 1.1 Triglycerides Cholesterol LDL Cholesterol Direct HDL Cholesterol Procalcitonin Free T4 TSH 3rd Generation Urine Color Urine Clarity Urine pH Ur Specific [place] Urine Protein Urine Glucose (UA) Urine Ketones Urine Blood Urine Nitrate Urine Bilirubin Urine Urobilinogen Ur Leukocyte Esterase Urine WBC (Auto) Urine RBC (Auto) Ur Squamous Epith Cells Urine Opiates Screen Negative Urine Methadone Screen Negative Ur Barbiturates Screen Negative Ur Phencyclidine Scrn Negative Ur Amphetamines Screen Negative U Benzodiazepines Scrn Negative U Oth Cocaine Metabols Negative U Cannabinoids Screen Negative 04/10/18 04/10/18 04/10/18 06:21 06:21 06:21 WBC RBC Hgb Hct MCV MCH MCHC RDW Plt Count MPV Neut % (Auto) Lymph % (Auto) Cowley % (Auto) Eos % (Auto) Baso % (Auto) Neut # (Auto) Lymph # (Auto) Cow[place] # (Auto) Eos # (Auto) Baso # (Auto) Neutrophils % (Manual) Lymphocytes % (Manual) Monocytes % (Manual) Eosinophils % (Manual) Platelet Estimate RBC Morphology Retic Count 1.0 Haptoglobin Sodium Potassium Chloride Carbon Dioxide Anion Gap BUN Creatinine Est GFR ( Amer) Est GFR (Non-Af Amer) Random Glucose Hemoglobin A1c Lactic Acid Calcium Iron 22 L TIBC 312 % Saturation 7 L Ferritin Total Bilirubin AST ALT Alkaline Phosphatase Lactate Dehydrogenase Total Creatine Kinase CK-MB (Mass) Troponin I NT-Pro-B Natriuret Pep Total Protein Albumin Globulin Albumin/Globulin Ratio Triglycerides Cholesterol LDL Cholesterol Direct HDL Cholesterol Procalcitonin 0.07 L Free T4 TSH 3rd Generation Urine Color Urine Clarity Urine pH Ur Specific [place] Urine Protein Urine Glucose (UA) Urine Ketones Urine Blood Urine Nitrate Urine Bilirubin Urine Urobilinogen Ur Leukocyte Esterase Urine WBC (Auto) Urine RBC (Auto) Ur Squamous Epith Cells Urine Opiates Screen Urine Methadone Screen Ur Barbiturates Screen Ur Phencyclidine Scrn Ur Amphetamines Screen U Benzodiazepines Scrn U Oth Cocaine Metabols U Cannabinoids Screen 04/10/18 04/10/18 04/10/18 06:21 06:21 06:21 WBC RBC Hgb Hct MCV MCH MCHC RDW Plt Count MPV Neut % (Auto) Lymph % (Auto) [place] % (Auto) Eos % (Auto) Baso % (Auto) Neut # (Auto) Lymph # (Auto) [place] # (Auto) Eos # (Auto) Baso # (Auto) Neutrophils % (Manual) Lymphocytes % (Manual) Monocytes % (Manual) Eosinophils % (Manual) Platelet Estimate RBC Morphology Retic Count Haptoglobin 271.3 H Sodium Potassium Chloride Carbon Dioxide Anion Gap BUN Creatinine Est GFR ( Amer) Est GFR (Non-Af Amer) Random Glucose Hemoglobin A1c 6.0 Lactic Acid 0.7 Calcium Iron TIBC % Saturation Ferritin Total Bilirubin AST ALT Alkaline Phosphatase Lactate Dehydrogenase Total Creatine Kinase CK-MB (Mass) Troponin I NT-Pro-B Natriuret Pep Total Protein Albumin Globulin Albumin/Globulin Ratio Triglycerides Cholesterol LDL Cholesterol Direct HDL Cholesterol Procalcitonin Free T4 1.55 TSH 3rd Generation Urine Color Urine Clarity Urine pH Ur Specific [place] Urine Protein Urine Glucose (UA) Urine Ketones Urine Blood Urine Nitrate Urine Bilirubin Urine Urobilinogen Ur Leukocyte Esterase Urine WBC (Auto) Urine RBC (Auto) Ur Squamous Epith Cells Urine Opiates Screen Urine Methadone Screen Ur Barbiturates Screen Ur Phencyclidine Scrn Ur Amphetamines Screen U Benzodiazepines Scrn U Oth Cocaine Metabols U Cannabinoids Screen 04/10/18 06:21 WBC RBC Hgb Hct MCV MCH MCHC RDW Plt Count MPV Neut % (Auto) Lymph % (Auto) [place] % (Auto) Eos % (Auto) Baso % (Auto) Neut # (Auto) Lymph # (Auto) [place] # (Auto) Eos # (Auto) Baso # (Auto) Neutrophils % (Manual) Lymphocytes % (Manual) Monocytes % (Manual) Eosinophils % (Manual) Platelet Estimate RBC Morphology Retic Count Haptoglobin Sodium Potassium Chloride Carbon Dioxide Anion Gap BUN Creatinine Est GFR ( Amer) Est GFR (Non-Af Amer) Random Glucose Hemoglobin A1c Lactic Acid Calcium Iron TIBC % Saturation Ferritin Total Bilirubin AST ALT Alkaline Phosphatase Lactate Dehydrogenase Total Creatine Kinase 56 CK-MB (Mass) 0.56 Troponin I < 0.0120 NT-Pro-B Natriuret Pep Total Protein Albumin Globulin Albumin/Globulin Ratio Triglycerides Cholesterol LDL Cholesterol Direct HDL Cholesterol Procalcitonin Free T4 TSH 3rd Generation Urine Color Urine Clarity Urine pH Ur Specific [place] Urine Protein Urine Glucose (UA) Urine Ketones Urine Blood Urine Nitrate Urine Bilirubin Urine Urobilinogen Ur Leukocyte Esterase Urine WBC (Auto) Urine RBC (Auto) Ur Squamous Epith Cells Urine Opiates Screen Urine Methadone Screen Ur Barbiturates Screen Ur Phencyclidine Scrn Ur Amphetamines Screen U Benzodiazepines Scrn U Oth Cocaine Metabols U Cannabinoids Screen - EKG Data EKG shows normal: Sinus rhythm (first degree avb and apbs) Assessment & Plan - Assessment and Plan (Free Text) Assessment: 1. Chest pain is non anginal. It is related to cough, and CTA is negative. TNI negative, no ischemic ecg changes. 2. CAD: stable: asa, statin 3. US of the leg demonstrates chronic thrombus, dvt of the right femoral vein. This is present in spite of pradaxa. I will discuss the findings with Dr lemus and create a plan. 4. echo demonstrates normal LV EF, and moderately dilated aorta of 4.4 cm.
--- NOTE | 2018-04-10 22:16 | CARD ---
APPROVED REPORT EXAM: Two-dimensional and M-mode echocardiogram with Doppler and color Doppler. Other Information Quality : TDSRhythm : INDICATION CVA/TIA Dyspnea Chest Pain RISK FACTORS Hypertension Hyperlipidemia 2D DIMENSIONS IVSd0.9 (0.7-1.1cm)LVDd4.4 (3.9-5.9cm) PWd1.1 (0.7-1.1cm)LVDs3.2 (2.5-4.0cm) FS (%) 26.2 %LVEF (%)55.0 (>50%) M-Mode DIMENSIONS Left Atrium (MM)3.84 (2.5-4.0cm)Aortic Root3.71 (2.2-3.7cm) Aortic Cusp Exc.2.67 (1.5-2.0cm) Mitral Valve MV E Fxggfzjr77.2cm/sMV A Erlfoysb52.9cm/sE/A ratio0.9 TDI E/Lateral E'0.0E/Medial E'0.0 Tricuspid Valve TR Peak Thgoqzhm629lw/sTR Peak Gr.[id number] LEFT VENTRICLE The left ventricle is normal size. There is normal left ventricular wall thickness. Left ventricle systolic function is normal. The Ejection Fraction is 60-65%. There is normal LV segmental wall motion. Transmitral Doppler flow pattern is Grade I-abnormal relaxation pattern. There is no ventricular septal defect visualized. RIGHT VENTRICLE The right ventricle is normal size. The right ventricular systolic function is normal. ATRIA The left atrium is mildly dilated. The right atrium size is normal. AORTIC VALVE The aortic valve is mildly sclerotic. The aortic valve is tri-cuspid. The aortic valve is not well visualized. No aortic regurgitation is present. There is no aortic valvular stenosis. MITRAL VALVE The mitral valve is not well visualized. There is no evidence of mitral valve prolapse. There is no mitral valve regurgitation noted. TRICUSPID VALVE The tricuspid valve is normal in structure. There is trace tricuspid regurgitation. Right ventricular systolic pressure is estimated at 30-40 mmHg. There is mild pulmonary hypertension. PULMONIC VALVE The pulmonic valve is not well visualized. There is trace pulmonic valvular regurgitation. GREAT VESSELS The aortic root is mildly enlarged. 3.8 cm The ascending aorta is Mildly dilated. 4.4 cm The IVC was not visualized. PERICARDIAL EFFUSION There is no pericardial effusion. <Conclusion> Suboptimal, poor acoustic window Left ventricle systolic function is normal. The Ejection Fraction is 60-65%. Transmitral Doppler flow pattern is Grade I-abnormal relaxation pattern. There is mild pulmonary hypertension. The ascending aorta is Mildly dilated. 4.4 cm
[2018-04-11 06:23] LABS: BASO % 0.2 % (0.0-2.0); HEMOGLOBIN 12.1 g/dL (12.0-18.0); LYMPH # 0.8 K/uL (1.0-4.3); LYMPH % 6.7 % (20.0-40.0); MEAN CELL VOLUME 83.7 fL (80.0-94.0); MEAN CORPUSCULAR HEMOGLOBIN 28.7 pg (27.0-31.0); MEAN CORPUSCULAR HGB CONC 34.3 g/dL (33.0-37.0); MEAN PLATELET VOLUME 11.1 fL (7.2-11.7); MONO # 0.5 K/uL (0.0-0.8); MONO % 4.4 % (0.0-10.0); NEUT # 10.7 K/uL (1.8-7.0); NEUT % 88.7 % (50.0-75.0); PLATELET COUNT 202 K/uL (130-400); RBC 4.23 Mil/uL (4.40-5.90); RED CELL DISTRIBUTION WIDTH 13.8 % (11.5-14.5); WHITE BLOOD COUNT 12.1 K/uL (4.8-10.8)
[2018-04-11 06:40] LABS: ALB/GLOB RATIO 0.9 (1.0-2.1); CALCIUM 9.2 mg/dl (8.6-10.4)
[2018-04-11] MEDS: Albuterol-Ipratrop 3 mg / 0.5 (3 ml) UD INH SCH ×2 (08:22→13:27)
[2018-04-11 09:26] VITALS: O2SAT 98
[2018-04-11 09:29] LABS: ANISOCYTOSIS SLIGHT; BANDS 2 % (0-2); LYMPHOCYTE 6 % (20-40); MONOCYTE 4 % (0-10); NEUTROPHIL 88 % (50-75); PLATELET ESTIMATE NORMAL (NORMAL); TOTAL CELLS COUNTED 100
[2018-04-11 09:30] LABS: LARGE PLATELETS PRESENT; TOXIC GRANULATION PRESENT
[2018-04-11 09:32] LABS: HYPOCHROMIC SLIGHT; POLYCHROMIC SLIGHT
[2018-04-11] MEDS ORDERED: Ferric Sodium Gluconat Complex 62.5 mg/5 ml Vial IVPB SCH (10:00)
--- NOTE | 2018-04-11 12:18 | CP.PCM.DIS ---
Provider - Provider Date of Admission: 04/09/18 19:17 Attending physician: Zoey Feldman DO Time Spent in preparation of Discharge (in minutes): 55 Hospital Course - Lab Results Lab Results: Micro Results 04/10/18 03:49 Urine,Clean Catch Urine Culture - Final No Growth (<1,000 CFU/ML) 04/09/18 16:45 Blood Blood Culture - Preliminary NO GROWTH AFTER 24 HOURS 04/09/18 17:00 Blood Blood Culture - Preliminary NO GROWTH AFTER 24 HOURS Most Recent Lab Values WBC 12.1 K/uL (4.8-10.8) H 04/11/18 06:12 RBC 4.23 Mil/uL (4.40-5.90) L 04/11/18 06:12 Hgb 12.1 g/dL (12.0-18.0) 04/11/18 06:12 Hct 35.4 % (35.0-51.0) 04/11/18 06:12 MCV 83.7 fL (80.0-94.0) 04/11/18 06:12 MCH 28.7 pg (27.0-31.0) 04/11/18 06:12 MCHC 34.3 g/dL (33.0-37.0) 04/11/18 06:12 RDW 13.8 % (11.5-14.5) 04/11/18 06:12 Plt Count 202 K/uL (130-400) 04/11/18 06:12 MPV 11.1 fL (7.2-11.7) 04/11/18 06:12 Neut % (Auto) 88.7 % (50.0-75.0) H 04/11/18 06:12 Lymph % (Auto) 6.7 % (20.0-40.0) L 04/11/18 06:12 Johnson % (Auto) 4.4 % (0.0-10.0) 04/11/18 06:12 Eos % (Auto) 0.0 % (0.0-4.0) 04/11/18 06:12 Baso % (Auto) 0.2 % (0.0-2.0) 04/11/18 06:12 Neut # (Auto) 10.7 K/uL (1.8-7.0) H 04/11/18 06:12 Lymph # (Auto) 0.8 K/uL (1.0-4.3) L 04/11/18 06:12 Johnson # (Auto) 0.5 K/uL (0.0-0.8) 04/11/18 06:12 Eos # (Auto) 0.0 K/uL (0.0-0.7) 04/11/18 06:12 Baso # (Auto) 0.0 K/uL (0.0-0.2) 04/11/18 06:12 Neutrophils % (Manual) 88 % (50-75) H 04/11/18 06:12 Band Neutrophils % 2 % (0-2) 04/11/18 06:12 Lymphocytes % (Manual) 6 % (20-40) L 04/11/18 06:12 Monocytes % (Manual) 4 % (0-10) 04/11/18 06:12 Eosinophils % (Manual) 4 % (0-4) 04/10/18 06:21 Toxic Granulation Present 04/11/18 06:12 Platelet Estimate Normal (NORMAL) 04/11/18 06:12 Large Platelets Present 04/11/18 06:12 RBC Morphology Normal 04/10/18 06:21 Polychromasia Slight 04/11/18 06:12 Hypochromasia (manual) Slight 04/11/18 06:12 Anisocytosis (manual) Slight 04/11/18 06:12 Retic Count 1.0 % (0.5-1.5) 04/10/18 06:21 Haptoglobin 271.3 mg/dL (30.0-200.0) H 04/10/18 06:21 PT 13.4 SECONDS (9.7-12.2) H 04/09/18 16:54 INR 1.2 04/09/18 16:54 APTT 43 SECONDS (21-34) H 04/09/18 16:54 Sodium 140 mmol/L (132-148) 04/11/18 06:12 Potassium 4.1 mmol/L (3.6-5.2) 04/11/18 06:12 Chloride 103 mmol/L (98-107) 04/11/18 06:12 Carbon Dioxide 24 mmol/L (22-30) 04/11/18 06:12 Anion Gap 18 (10-20) 04/11/18 06:12 BUN 20 mg/dL (9-20) 04/11/18 06:12 Creatinine 1.4 mg/dL (0.8-1.5) 04/11/18 06:12 Est GFR ( Amer) 60 04/11/18 06:12 Est GFR (Non-Af Amer) 49 04/11/18 06:12 Random Glucose 163 mg/dL (75-110) H 04/11/18 06:12 Hemoglobin A1c 6.0 % (4.2-6.5) 04/10/18 06:21 Lactic Acid 0.7 mmol/L (0.7-2.1) 04/10/18 06:21 Calcium 9.2 mg/dl (8.6-10.4) 04/11/18 06:12 Phosphorus 3.4 mg/dL (2.5-4.5) 04/11/18 06:12 Magnesium 2.4 mg/dL (1.6-2.3) H 04/11/18 06:12 Iron 22 ug/dL (49-181) L 04/10/18 06:21 TIBC 312 ug/dL (250-450) 04/10/18 06:21 % Saturation 7 (20-55) L 04/10/18 06:21 Ferritin 52.1 ng/mL 04/10/18 01:40 Total Bilirubin 0.6 mg/dL (0.2-1.3) 04/11/18 06:12 AST 26 U/L (17-59) 04/11/18 06:12 ALT 24 U/L (21-72) 04/11/18 06:12 Alkaline Phosphatase 75 U/L (38-126) 04/11/18 06:12 Lactate Dehydrogenase 425 U/L (313-618) 04/10/18 01:40 Total Creatine Kinase 56 U/L (55-170) 04/10/18 06:21 CK-MB (Mass) 0.56 ng/mL (0.0-3.38) 04/10/18 06:21 Troponin I < 0.0120 ng/mL (0.00-0.120) 04/10/18 06:21 NT-Pro-B Natriuret Pep 225 pg/mL (0-900) 04/10/18 01:40 Total Protein 8.4 g/dL (6.3-8.3) H 04/11/18 06:12 Albumin 4.0 g/dL (3.5-5.0) 04/11/18 06:12 Globulin 4.4 gm/dL (2.2-3.9) H 04/11/18 06:12 Albumin/Globulin Ratio 0.9 (1.0-2.1) L 04/11/18 06:12 Triglycerides 61 mg/dL (0-149) D 04/10/18 01:40 Cholesterol 166 mg/dL (0-199) 04/10/18 01:40 LDL Cholesterol Direct 100 mg/dL (0-129) 04/10/18 01:40 HDL Cholesterol 35 mg/dL (30-70) 04/10/18 01:40 Procalcitonin 0.07 NG/ML (0.19-0.49) L 04/10/18 06:21 Free T4 1.55 ng/dL (0.78-2.19) 04/10/18 06:21 TSH 3rd Generation 1.83 mIU/L (0.46-4.68) 04/10/18 01:40 Urine Color Yellow (YELLOW) 04/09/18 17:56 Urine Clarity Clear (Clear) 04/09/18 17:56 Urine pH 5.0 (5.0-8.0) 04/09/18 17:56 Ur Specific [place]ike 1.013 (1.003-1.030) 04/09/18 17:56 Urine Protein Negative mg/dL (NEGATIVE) 04/09/18 17:56 Urine Glucose (UA) Normal mg/dL (Normal) 04/09/18 17:56 Urine Ketones Negative mg/dL (NEGATIVE) 04/09/18 17:56 Urine Blood Negative (NEGATIVE) 04/09/18 17:56 Urine Nitrate Negative (NEGATIVE) 04/09/18 17:56 Urine Bilirubin Negative (NEGATIVE) 04/09/18 17:56 Urine Urobilinogen Normal mg/dL (0.2-1.0) 04/09/18 17:56 Ur Leukocyte Esterase Neg Claudine/uL (Negative) 04/09/18 17:56 Urine WBC (Auto) < 1 /hpf (0-5) 04/09/18 17:56 Urine RBC (Auto) < 1 /hpf (0-3) 04/09/18 17:56 Ur Squamous Epith Cells < 1 /hpf (0-5) 04/09/18 17:56 Urine Opiates Screen Negative (NEGATIVE) 04/10/18 03:49 Urine Methadone Screen Negative (NEGATIVE) 04/10/18 03:49 Ur Barbiturates Screen Negative (NEGATIVE) 04/10/18 03:49 Ur Phencyclidine Scrn Negative (NEGATIVE) 04/10/18 03:49 Ur Amphetamines Screen Negative (NEGATIVE) 04/10/18 03:49 U Benzodiazepines Scrn Negative (NEGATIVE) 04/10/18 03:49 U Oth Cocaine Metabols Negative (NEGATIVE) 04/10/18 03:49 U Cannabinoids Screen Negative (NEGATIVE) 04/10/18 03:49 - Hospital Course Hospital Course: Upon Admission: This is a 73 yo male with past medical hx of HTN, CVA, DVT, s/p IVC filter, presenting with chief complaint of chest pain and shortness of breath x 2 days. Pt reports the pain started suddenly when he was sitting in his recliner 2 days ago. Describes the pain as "mild", had trouble further characterizing it. It comes and goes. He says when it comes, it will occur for 5 mins at a time. Pain is diffusely located over whole chest, 5/10. It is worse with inspiration and it is reproducible. It does not radiate. Pt also reports cough with nonbloody sputum production for the past 3 months. The chest pain has not happened before. No sick contacts. Last travel was to [place] in Dec 2017. Denies fevers , chills, nausea, vomiting. PMD: Manuel Batpiste- last visit 2 weeks ago Specialists: Dr. Estrella- cardiology PMH: HTN, B/L DVT with IVC filter placement, stroke in November 2014 with some residual deficit on right side PSH: IVC filter, placed by Dr. Clemente, clot removal by Dr. Rodriguez November 2017 Allergies: NKDA FH: DM, emphysema in family Home meds: losartan-HCTZ 12. mg po daily, coreg 10 mg PO daily, lasix 20 mg po BID, asa 81 mg po daily, pradaxa (waiting to confirm dose), symbicort inhaler bid Social hx: Uses cane to walk. Needs with help with ADLs with help of . Retired [employer]. Born in [place]. Denies smoking hx. Denies drinking. Denies drug use. Throughout Hospital Course: This is a 73 year old male with PMHx of CVA with right sided residual weakness (ambulates with quad cane; 2014), CAD with 1 stent on Pradaxa (2015), HTN, HLD, and history of right LE DVT s/p IVC filter (2014) who presented to the ED with nonproductive cough, chest pain, and right LE pain. Patient was admitted for Chest pain R/O ACS. Pneumonia, PA, PE, CHF were ruled out. Venous dopplers of LE showed bilateral superficial thrombophlebitis and a chronic right LE DVT. Constipation x 3 days with passing flatus - SBO ruled out via abdominal xray. Plan: Chest Pain R/O ACS Hx CAD with balloon in LCX on Pradaxa (2015) Chest pain likely 2/2 Bronchitis - Cardiology consulted - Dr. Pink - help appreciated - BARBER x 3 negative, EKG x3 - 1st degree AV block - HGBA1C: 6.0; TSH, Free T4 WNL, BNP - WNL - Pneumonia, PA, PE, CHF were ruled out - ECHO: demonstrates normal LV EF, and moderately dilated aorta of 4.4 cm. Imaging: - CXR: NAD, no effusions, consolidations noted - CTA: showed no evidence of pulmonary embolism, but does not mild to moderate coronary atherosclerosis, no effusions, or consolidations or ground glass appearance that was noted on previous CT chest 2014 Bronchitis - CXR: NAD, no effusions, consolidations noted - Procal - low - blood, sputum cultures - negative to date Management: - Duonebs Q6H ADELFO - Promethazine 6.25mg Q6H - Solumedrol 40mg IVP one dose, prednisone 20mg PO tomorrow x 1 dose Hx Chronic Right LE DVT s/p IVC filter (2014) - Venous dopplers - bilateral superficial thrombophlebitis and a chronic right LE DVT - Patient is on ASA, Pradaxa - will continue - Ordered CT Venogram - results will be followed as outpatient by Dr. Clemente Hx CVA with right sided residual weakness (ambulates with quad cane; 2014) Hx HTN - Resumed home medications: Coreg 6.25 BID, HCTZ 12.5mg/Cozaar 50mg Hx HLD - Lipid panel WNL - Started Crestor 10mg PO QHS Constipation -- RESOLVED - Abdominal Xray - no evidence of SBO - Will give lactulose, colace Iron Deficiency Anemia - Confirmed on labs - IV Ferrlecit - Will DC with PO iron, colace, and encourage eating foods rice in iron Please review EMR as this is a brief summary of the patient's hospital course. Discharge Exam - Additional Findings Additional findings: - Constitutional Appears: Non-toxic, No Acute Distress - Head Exam Head Exam: ATRAUMATIC, NORMAL INSPECTION, NORMOCEPHALIC - Eye Exam Eye Exam: EOMI - ENT Exam ENT Exam: Mucous Membranes Moist - Neck Exam Neck exam: Positive for: Full Rom, Normal Inspection - Respiratory Exam Respiratory Exam: CTA bilaterally absent: Respiratory Distress, rales, rhonchi Additional comments: - Cardiovascular Exam Cardiovascular Exam: REGULAR RHYTHM, +S1, +S2 Additional comments: chest pain reproducible to palpation - GI/Abdominal Exam GI & Abdominal Exam: Normal Bowel Sounds, Firm, Distended absent: Tenderness - Extremities Exam Extremities exam: Positive for: pedal edema, pedal pulses present. Negative for : normal inspection Additional comments: right medial leg tender to palpation, right leg swollen, some chronic venous stasis noted bilaterally R>L - Neurological Exam Neurological exam: Alert, CN II-XII Intact, Oriented x3 - Psychiatric Exam Psychiatric exam: Normal Affect, Normal Mood - Skin Skin Exam: Dry, Intact, Normal Color, Warm Discharge Plan - Discharge Medications Prescriptions: Aspirin [Aspirin Chewable] 81 mg PO DAILY #30 chew Carvedilol [Coreg] 6.25 mg PO BID #60 tab Dabigatran [Pradaxa] 75 mg PO BID #60 cap Docusate [Colace] 100 mg PO BID PRN #60 cap PRN Reason: Constipation Ferrous Sulfate 325 mg PO DAILY #30 tablet Furosemide [Lasix] 20 mg PO Q48H #30 tab Losartan/Hydrochlorothiazide [Losartan-Hctz 50-12.5 mg Tab] 1 each PO DAILY #30 tablet Rosuvastatin Calcium [Crestor] 10 mg PO HS #30 tab - Follow Up Plan Condition: STABLE Disposition: HOME/ ROUTINE Instructions: Deep Venous Thrombosis (DC), Deep Venous Thrombosis (GEN) Additional Instructions: You will continue with the following medications: Aspirin 81mg by mouth daily ( to help prevent future strokes) Pradaxa 75mg by mouth TWICE A DAY ( for your leg clot) Coreg 6.25mg by mouth TWICE a day ( for your high blood pressure) Losartan/HCTZ 50-12.5mg tab - 1 tab by mouth daily ( for your high blood pressure) Lasix 20mg by mouth every other day ( to help remove fluid from your legs) Crestor 10mg by mouth at night with dinner (To help keep your cholesterol controlled) Ferrous sulfate 325mg by mouth daily (you are iron deficient) + Colace 100mg by mouth twice a day - as the iron can make you constipated. For your bronchitis please take over the counter Robitussin, Vitamin C, and hydrate yourself. Please follow up with Dr. Pink/ Dr. Estrella within 1 week to determine a plan for your chronic DVT (clot) in your right leg. Please take care and be well. -- Continuar con los siguientes medicamentos: Aspirina, 81 mg por va oral al da (para ayudar a prevenir futuros accidentes cerebrovasculares) Pradaxa 75 mg por va oral DOS VECES (para el cogulo de la pierna) Coreg 6.25 mg por va oral DOS VECES al da (para la presin arterial kady) Ficha Losartan / HCTZ 50-12.5 mg - 1 tableta por la boca diariamente (para la presin arterial kady) Lasix 20 mg por va oral cada dos shelby (para ayudar a eliminar el lquido de las piernas) Crestor 10 mg por la boca por la noche con la shae (Para ayudar a mantener el colesterol controlado) Sulfato ferroso 325 mg por va oral diariamente (tiene deficiencia de nicki) + Colace 100 mg por va oral dos veces al da, ya que el nicki puede causar estre imiento. Para alonzo bronquitis tome el contador Robitussin, Vitamina C e hidrtese. Por favor, oleg un seguimiento con el Dr. Pink / Dr. Estrella dentro de 1 semana para determinar un plan para alonzo TVP (cogulo) crnica en alonzo pierna derecha. Por favor cudate y estate mario. Referrals: Tim Pink MD [Staff Provider] - Sriram Clemente Jr., MD [Staff Provider] -
[2018-04-11] MEDS ORDERED: Iodixanol 320 mg/ml 150 ml Bottle IV ONE (16:09)
[2018-04-11 17:05] VITALS: BP 109/73; TEMP 98.9
[2018-04-11 17:59] VITALS: PULSE 78
--- NOTE | 2018-04-12 03:15 | CARD ---
APPROVED REPORT EKG Measurement Heart [id number] <Conclusion> Sinus rhythm with 1st degree AV block with premature atrial complexes Low voltage QRS Borderline ECG
== END 2018-04-11 18:22 | disposition home or self-care (01) ==
LOC: C.ER 16:04 → C.6T 19:17 → C.9E 19:17
PROVIDERS: ADMIT Hospitalist; ATTEND Hospitalist
DX: R07.9 Chest pain, unspecified (principal); J40 Bronchitis, not specified as acute or chronic; D64.9 Anemia, unspecified; D72.829 Elevated white blood cell count, unspecified; E78.00 Pure hypercholesterolemia, unspecified; I10 Essential (primary) hypertension; I25.10 Atherosclerotic heart disease of native coronary artery without angina pectoris; I44.0 Atrioventricular block, first degree; I48.0 Paroxysmal atrial fibrillation; I69.351 Hemiplegia and hemiparesis following cerebral infarction affecting right dominant side; I77.819 Aortic ectasia, unspecified site; I80.9 Phlebitis and thrombophlebitis of unspecified site; R79.1 Abnormal coagulation profile; Z79.01 Long term (current) use of anticoagulants; Z79.82 Long term (current) use of aspirin; Z79.899 Other long term (current) drug therapy; Z86.711 Personal history of pulmonary embolism; Z98.61 Coronary angioplasty status; I82.511 Chronic embolism and thrombosis of right femoral vein; I82.531 Chronic embolism and thrombosis of right popliteal vein
CPT/HCPCS: 36415; 71045; 71275; 74018; 75635; 80053; 80061; 81001; 82550; 82553; 82728; 83010; 83036; 83540; 83550; 83605; 83615; 83735; 83880; 84100; 84145; 84439; 84443; 84484; 85025; 85044; 85610; 85730; 87040; 87070; 87086; 93005; 93306; 93970; 94640; 97116; 97162; 99285; C9113; G0378; G0480; G8978; G8979; J2916; J2920; Q9967

== ENCOUNTER 2018-11-24 12:24 | Emergency (ER) | payer MEDICARE ==
[2018-11-24 12:24] VITALS: BMI 35.2
[2018-11-24 12:44] VITALS: BP 146/78; PULSE 75; RESP 18; TEMP 97.5; O2SAT 96
--- NOTE | 2018-11-24 13:25 | C.PDOC ---
History Of Present Illness 73 y/o male comes in complaining of left lower back injury since yesterday after he accidentally tripped and fell. States he uses a cane chronically, lost footing and fell backwards. Patient reports the pain is localized and worsens with movement. Patient has not used any pain medications and denies other associated symptoms or injury. L LOWER BACK INJURY SP ACCID TRIP AND FALL YEST. USES CAN CHRONICALLY, LOST FOOTING AND FELL BACKWARDS. PAIN LOCALIZED WORSE W MOVEMENT. NO PAIN MEDS TRIED. DENIES OTHER ASSOC SX, INJURY EXAM MILD DIST NONTOXIC BACK +L LWOER BACK SPASM W LOCAL TEND; NO SPINAL TEND. LIMITED FULL EXTENSION DUE TO PAIN SKIN INTACT NEURO INTACT Time Seen by Provider: 11/24/18 13:17 Chief Complaint (Nursing): Back Pain History Per: Patient History/Exam Limitations: no limitations Onset/Duration Of Symptoms: Days Current Symptoms Are (Timing): Still Present Past Medical History Reviewed: Historical Data, Nursing Documentation, Vital Signs Vital Signs: Last Vital Signs Temp 97.5 F L 11/24/18 12:41 Pulse 75 11/24/18 12:41 Resp 18 11/24/18 12:41 BP 146/78 11/24/18 12:41 Pulse Ox 96 11/24/18 12:41 - Medical History PMH: CVA, Deep Vein Thrombosis, HTN, Hypercholesterolemia, Pulmonary Embolism Surgical History: Denies: Pacemaker - [facility] Procedures ENDOSC POLYPECTOMY OF LG INTEST (12/25/13) PLICATION OF VENA CAVA (03/20/15) Family History: States: No Known Family Hx - Social History Hx Tobacco Use: No Hx Alcohol Use: No Hx Substance Use: No - Immunization History Hx Tetanus Toxoid Vaccination: No Hx Influenza Vaccination: No Hx Pneumococcal Vaccination: No Review Of Systems Except As Marked, All Systems Reviewed And Found Negative. Constitutional: Negative for: Fever Cardiovascular: Negative for: Chest Pain Respiratory: Negative for: Shortness of Breath Gastrointestinal: Negative for: Vomiting Musculoskeletal: Positive for: Back Pain (left lower back). Negative for: Neck Pain, Leg Pain Neurological: Negative for: Headache, Other (LOC) Physical Exam - Physical Exam Appears: Non-toxic, In Acute Distress (mild distress) Skin: Warm, Dry, Other (Intact) Head: Atraumatic, Normacephalic Eye(s): bilateral: Normal Inspection Oral Mucosa: Moist Neck: Supple Chest: Symmetrical Cardiovascular: Rhythm Regular, No Murmur Respiratory: Normal Breath Sounds, No Rales, No Rhonchi, No Wheezing Gastrointestinal/Abdominal: Soft, No Tenderness Back: No CVA Tenderness, No Paraspinal Tenderness, Other (Left lower back spasm with local tenderness; limited full extension due to pain) Extremity: Bilateral: Normal Color And Temperature Neurological/Psych: Oriented x3, Normal Speech, Other (No focal deficits) ED Course And Treatment O2 Sat by Pulse Oximetry: 96 (RA) Pulse Ox Interpretation: Normal - Other Rad LS SPINE X-Ray: Interpreted by Me (NEG) Lumbar Spine XR X-Ray: Read By Radiologist Interpretation: FINDINGS: BONES: Alignment appears satisfactory. No listhesis. No acute displaced fracture identified. Multilevel degenerative changes including confluent anterior osteophytes most prominent L3-L4. Facet hypertrophy. Osseous demineralization. DISC SPACES: Unremarkable. OTHER FINDINGS: IVC filter. Atherosclerotic calcifications of the aorta. Right common iliac stent. IMPRESSION: Osseous demineralization limits evaluation for acute fracture lines. No acute displaced fracture identified. Multilevel degenerative changes of the spine. IVC filter. Right common iliac stent. Progress Note: Lumbar spine XR. Patient was given toradol IM. Disposition Counseled Patient/Family Regarding: Studies Performed, Diagnosis, Need For Followup, Rx Given - Disposition Referrals: YOUR,PMD [Other] Disposition: HOME/ ROUTINE Disposition Time: 13:40 Condition: IMPROVED Prescriptions: Ibuprofen [Motrin] 400 mg PO QID #30 tab Tramadol HCl [Ultram] 50 mg PO QID #20 tab Instructions: Low Back Pain (DC) Forms: [facility] (Belarusian) - Clinical Impression Clinical Impression: Lumbar sprain, Contusion of back - Scribe Statement The provider has reviewed the documentation as recorded by the Echo Jimenez Provider Attestation: All medical record entries made by the Echo were at my direction and personally dictated by me. I have reviewed the chart and agree that the record accurately reflects my personal performance of the history, physical exam, medical decision making, and the department course for this patient. I have also personally directed, reviewed, and agree with the discharge instructions and disposition.
--- NOTE | 2018-11-24 13:51 | RAD ---
Date of service: 11/24/2018 PROCEDURE: Radiographs of the Lumbar Spine. HISTORY: TRAUMA COMPARISON: Lumbar spine radiographs performed 05/13/15 FINDINGS: BONES: Alignment appears satisfactory. No listhesis. No acute displaced fracture identified. Multilevel degenerative changes including confluent anterior osteophytes most prominent L3-L4. Facet hypertrophy. Osseous demineralization. DISC SPACES: Unremarkable. OTHER FINDINGS: IVC filter. Atherosclerotic calcifications of the aorta. Right common iliac stent. IMPRESSION: Osseous demineralization limits evaluation for acute fracture lines. No acute displaced fracture identified. Multilevel degenerative changes of the spine. IVC filter. Right common iliac stent.
== END 2018-11-24 13:46 | disposition home or self-care (01) ==
LOC: C.ER 12:24
DX: S33.5XXA Sprain of ligaments of lumbar spine, initial encounter (principal); S30.0XXA Contusion of lower back and pelvis, initial encounter; W01.0XXA Fall on same level from slipping, tripping and stumbling without subsequent striking against object, initial encounter
CPT/HCPCS: 72100; 96372; 99283; J1885

== ENCOUNTER 2018-11-26 12:36 | Outpatient (CLI) | payer MEDICARE | END 2018-11-26 12:37 | disposition home or self-care (01) | LOC: C.PAT 12:36 | DX: L72.3 Sebaceous cyst (principal) ==

== ENCOUNTER 2018-12-01 09:49 | Day surgery (SDC) | payer MEDICARE ==
[2018-12-01 10:49] VITALS: O2SAT 96
[2018-12-01] MEDS ORDERED: Bupivacaine 0.25% 20 ML INJ IJ ONE (13:51)
[2018-12-01] MEDS ORDERED: Lidocaine/Epinephrine 1% 1:100000 10 ML IJ ONE (13:51)
[2018-12-01] MEDS ORDERED: ceFAZolin IV 2 gm in Dextrose 0 GM/0 ML BAG IVPB ONE (14:19)
[2018-12-01] MEDS ORDERED: Midazolam 2 MG/2 ML VIAL ONE (14:33)
[2018-12-01] MEDS ORDERED: ceFAZolin 1 gm in NS 1 GM/100 ML BAG IVPB ONE ×2 (14:33→15:20)
[2018-12-01] MEDS ORDERED: Bacitracin Ointment 30 GM TUBE ONE (15:15)
[2018-12-01] MEDS ORDERED: Bacitracin 500 Units/gm Oint Foilpak UD ONE (15:16)
--- NOTE | 2018-12-01 15:49 | PCM.SURG1 ---
Surgeon's Initial Post Op Note - Surgeon's Notes Surgeon: [employer] Director: [id number] Type of Anesthesia: IV Sedation, Local Pre-Operative Diagnosis: Sebaceous cyst of the upper back Operative Findings: Sebaceous cyst of the upper back Post-Operative Diagnosis: Sebaceous cyst of the upper back Operation Performed: Excision of Sebaceous cyst of the upper back Specimen/Specimens Removed: Sebaceous cyst of the upper back Estimated Blood Loss: EBL {In ML}: 10 Blood Products Given: N/A Drains Used: No Drains Post-Op Condition: Good Date of Surgery/Procedure: 12/01/18 Time of Surgery/Procedure: 14:25
[2018-12-01] MEDS ORDERED: Oxycodone/Acetaminophen 5/325 mg Tab PO ONE (15:50)
[2018-12-01] MEDS ORDERED: HYDROmorphone 0.5 mg/0.5 ml ISec IVP PRN (16:21)
[2018-12-01 16:47] VITALS: BP 121/69; PULSE 60; RESP 15; TEMP 98.7
--- NOTE | 2018-12-02 14:48 | OP ---
PROCEDURE DATE: 12/01/2018 PREOPERATIVE DIAGNOSIS: Large sebaceous cyst of the back, approximately 5 x 4 cm size. POSTOPERATIVE DIAGNOSIS: Large sebaceous cyst of the back, approximately 5 x 4 cm size. PROCEDURES DONE: 1. Excision of the sebaceous cyst of the back, 5 x 4 cm size. 2. Excision of the redundant skin and subcutaneous tissue of the back, 5 x 3 cm size. 3. Layered closure of the wound, complex approximately 6 x 4 x 4 cm size. TYPE OF ANESTHESIA: Local anesthesia plus sedation. ESTIMATED BLOOD LOSS: Around 20 mL. DRAINS: None. PATHOLOGY: Sebaceous cyst with redundant skin was sent for the pathology. COMPLICATIONS: None. INTRAOPERATIVE FINDINGS: The patient had large sebaceous cyst of the back and the sebaceous cyst was extending medially. Complete dissection of the cyst was done without opening the skin with normal sac surrounding the cyst. There was no intraoperative contamination of the wound. DESCRIPTION OF PROCEDURE: On intraoperative steps, this 73-year-old male who was diagnosed with a sebaceous cyst of the back and the patient was initially given antibiotics to clear the infection. The patient was consented for the procedure, brought to the OR, placed in the left lateral position. The back was prepped and draped in the usual sterile fashion. Elliptical incision was made approximately 5 x 3 cm size. Upper and lower flap was created and the dissection was carried down deep up to the underlying muscles and the fascia medially, laterally, superiorly, inferiorly and proper hemostasis was achieved. The sebaceous cyst was completely excised and it was sent off the table for pathology. The wound was irrigated and some part of the skin margin was also excised to refashion the wound. Now, the defect was quite big. It was approximately 6 x 4 x 4 cm size and now the layered closure of the wound was done. The upper flap was sutured to the underlying fascia and the muscles. Lower flap was also sutured to the underlying fascia and muscles. The deep subcu with 2-0 Vicryl, superficial subcu with 3-0 Vicryl, skin with 4-0 Monocryl, and another layer of the skin with 4-0 Nylon interrupted sutures and dry sterile dressing was applied. The patient tolerated the procedure well. Count of instrument and gauze was correct. There was no apparent complication. The patient was reversed from anesthesia in OR, sent to the postanesthesia care unit in stable condition. Ha Medina MD
== END 2018-12-01 17:11 | disposition home or self-care (01) ==
LOC: C.SDS 09:49
PROVIDERS: ATTEND Surgery Surgical Critical Care
DX: L72.3 Sebaceous cyst (principal)
CPT/HCPCS: 11406; 12034; 88305; J0690; J2250